=== PATIENT | male | born 1950 | race Caucasian/White ===

== ENCOUNTER 2018-12-16 06:42 | Day surgery (SDC) | payer MEDICARE, OTHER ==
--- NOTE | 2018-12-03 23:49 | EKG REPORT ---
SEVERITY:- ABNORMAL ECG - SINUS RHYTHM LEFT ANTERIOR FASCICULAR BLOCK : Confirmed by: Lucila Haile 03-Dec-2018 23:49:15
[~2018-12-16 06:42] MED LIST: LIDOCAINE 0.5% INJ-PF (5 MG/ML) 50 ML SDV SUBCUT PRN; NORMAL SALINE 1000 ML (RENAL PATIENTS) IV PRN
[2018-12-16] MEDS ORDERED: PROPOFOL INJ 200 MG/20 ML VIAL IV ONE ×2 (10:01→11:39)
--- NOTE | 2018-12-16 11:46 | Discharge Summary ---
Discharge Summary (SDC) - Discharge Final Diagnosis: colon polyps Date of Surgery: 12/16/18 Discharge Date: 12/16/18 Condition: Stable Treatment or Instructions: Discharge home. Diet as tolerated. Activity: Nonstrenuous. Follow-up with me in 2 weeks. Referrals: KRIS TIRADO MD [Primary Care Provider] - Discharge Diet: As Tolerated Respiratory Treatments at Home: Deep Breathing/Coughing, Incentive Spirometer Discharge Activity: Balance Activity w/Rest Home Care Assistance: None Needed Report the Following to Your Physician Immediately: Shortness of Breath, Nausea, Vomiting, Increase in Pain, Unusual Bleeding
--- NOTE | 2018-12-16 11:52 | Operative Report ---
Nonrecallable Operative Report DATE OF SURGERY: 12/16/18 PREOPERATIVE DIAGNOSIS: History of colon polyps and colon cancer POSTOPERATIVE DIAGNOSIS: Multiple colon polyps OPERATION: 1. Colonoscopy to the ileocolic anastomosis. 2. Snare polypectomy of the larger colon polyps. 3. Hot biopsy of smaller colon polyps. SURGEON: CATHRYN GERMAN ANESTHESIA: LMAC TISSUE REMOVED OR ALTERED: 1. Polyp at 35 cm 2. 2. Polyp at 30 cm . 3. Polyp at 20 cm. COMPLICATIONS: None apparent ESTIMATED BLOOD LOSS: minimal PROCEDURE: Drains/implants: None. Procedure in detail: After informed consent was obtained, the patient was brought into the operating room and laid in the left lateral decubitus position. The endoscope was passed up the rectum, sigmoid colon, descending colon, across the transverse colon, down the ascending colon into the ileocolic anastomosis. The ileocolonic anastomosis was identified. The scope was withdrawn, circumferentially noting the mucosa. The prep was fair. Multiple washings and suctioning's were required in order to visualize the entirety of the mucosa. This was successful. The scope was pulled back past the hepatic flexure, transverse colon, down the descending colon, and into the sigmoid colon. Several polyps were identified in the sigmoid colon. At approximately 35 cm, 2 polyps were identified. The first polyp was removed via hot snare polypectomy. The second polyp was in a bend/fold and was much smaller. Hot biopsy forceps were necessary to remove this polyp. The polyp was completely removed. The scope was then withdrawn down to 30 cm, where another polyp was identified and removed via hot snare polypectomy. At 20 cm another polyp was again removed via hot snare polypectomy. The scope was then withdrawn into the rectum. Retroflexion maneuver was performed, noting no internal hemorrhoids. The scope was then straightened, air was suctioned from the rectum, the scope was removed, and the procedure was concluded. All sponge, instrument, and needle counts were correct. Condition: Stable.
[2018-12-16 12:45] VITALS: BP 125/51
== END 2018-12-16 12:47 | disposition home or self-care (01) ==
LOC: OROUT 06:42
PROVIDERS: ATTEND Surgery
DX: C18.7 Malignant neoplasm of sigmoid colon (principal); Z85.038 Personal history of other malignant neoplasm of large intestine; D12.5 Benign neoplasm of sigmoid colon; J44.9 Chronic obstructive pulmonary disease, unspecified; F17.210 Nicotine dependence, cigarettes, uncomplicated; E11.9 Type 2 diabetes mellitus without complications; E89.0 Postprocedural hypothyroidism; Z79.4 Long term (current) use of insulin; I10 Essential (primary) hypertension
CPT/HCPCS: 45385; 93005; 82962; 88305 ×2; 93010; 00811; J2704; 45380; 811

== ENCOUNTER 2019-12-27 10:48 | Day surgery (SDC) | payer MEDICARE, OTHER ==
[2019-12-27] MEDS ORDERED: PROPOFOL INJ 200 MG/20 ML VIAL IV ONE (13:22)
--- NOTE | 2019-12-27 14:21 | Discharge Summary ---
Discharge Summary (SDC) - Discharge Final Diagnosis: colon polyps Date of Surgery: 12/27/19 Discharge Date: 12/27/19 Condition: Stable Treatment or Instructions: Discharge home. Diet as tolerated. Activity: Nonstrenuous. Follow-up with [facility] in 7 to 10 days. Referrals: [facility] [Primary Care Provider] - Discharge Diet: As Tolerated Respiratory Treatments at Home: Deep Breathing/Coughing, Incentive Spirometer Discharge Activity: Balance Activity w/Rest Home Care Assistance: None Needed Report the Following to Your Physician Immediately: Shortness of Breath, Nausea, Vomiting, Increase in Pain, Fever over 101 Degrees, Unusual Bleeding, Redness
--- NOTE | 2019-12-27 14:25 | Operative Report ---
Nonrecallable Operative Report DATE OF SURGERY: 12/27/19 PREOPERATIVE DIAGNOSIS: History of colon polyps POSTOPERATIVE DIAGNOSIS: Multiple colon polyps OPERATION: 1. Colonoscopy to the cecum. 2. Hot biopsy of tiny colon polyp at 45 cm. 3. Snare polypectomy of large (greater than 1 cm) colon polyp at 20 cm. SURGEON: CATHRYN GERMAN ANESTHESIA: LMAC TISSUE REMOVED OR ALTERED: 1. Small polyp at 45 cm. 2. Large polyp at 20 cm. COMPLICATIONS: None apparent ESTIMATED BLOOD LOSS: Minimal PROCEDURE: Procedure in detail: After informed consent was obtained, the patient was brought to the operating room and laid in the left lateral decubitus position. The endoscope was inserted into the rectum. Was passed up the rectum, sigmoid colon, descending colon, across the transverse colon, to the ileocolic anastomosis. The ileocolic anastomosis was patent. The scope was then withdrawn, circumferentially noting the mucosa. The prep was very good. The scope was withdrawn past the transverse colon, down the descending colon, and into the sigmoid colon. Approximately 45 cm a diminutive polyp was identified. It was removed via hot biopsy forcep, in its entirety. The scope was then withdrawn down the remainder of the sigmoid colon. At approximately 20 cm, a large (greater than 1 cm) polyp was identified. It was removed via hot snare polypectomy. The scope was then withdrawn down the remainder of the sigmoid colon and into the rectum. In the rectum, a retroflexion maneuver was performed, noting no significant internal hemorrhoids. The scope was straightened, air was suctioned from the rectum, the scope was then removed, and the procedure was concluded. All sponge, instrument, and needle counts were correct. Condition: Stable.
[2019-12-27 14:51] VITALS: BP 106/57
== END 2019-12-27 15:00 | disposition home or self-care (01) ==
LOC: END 10:48
PROVIDERS: ATTEND Surgery
DX: Z12.11 Encounter for screening for malignant neoplasm of colon (principal); D12.6 Benign neoplasm of colon, unspecified; Z85.038 Personal history of other malignant neoplasm of large intestine; Z86.010 Personal history of colon polyps; E03.9 Hypothyroidism, unspecified; F17.210 Nicotine dependence, cigarettes, uncomplicated; E10.9 Type 1 diabetes mellitus without complications; I10 Essential (primary) hypertension; Z79.82 Long term (current) use of aspirin; Z79.899 Other long term (current) drug therapy; Z79.4 Long term (current) use of insulin; Z96.41 Presence of insulin pump (external) (internal); Z03.818 Encounter for observation for suspected exposure to other biological agents ruled out
CPT/HCPCS: 45384; 45385; 36415; 82962; 82378; 88305 ×2; U0003; J2704; C9803; 87635